=== PATIENT | female | born 1985 ===

== ENCOUNTER 2021-10-04 09:41 | Outpatient (CLI) | payer OTHER | END 2021-10-04 09:42 | disposition home or self-care (01) | LOC: RAD 09:41 | PROVIDERS: ATTEND Physical Medicine & Rehabilitation Hospice and Palliative Medicine | DX: M94.0 Chondrocostal junction syndrome [Tietze] (principal); M46.94 Unspecified inflammatory spondylopathy, thoracic region; M16.11 Unilateral primary osteoarthritis, right hip ==